=== PATIENT | female | born 1950 | race American Indian/Alaskan Native ===

== ENCOUNTER 2017-02-07 08:46 | Day surgery (SDC) | payer MEDICARE ==
[2017-01-30 10:44] VITALS: BMI 27.4
[2017-02-07] MEDS ORDERED: Sodium Chloride 0.9% 1,000 ML IV SCH (09:30)
[2017-02-07] MEDS ORDERED: Propofol 10 mg/ml Inj (20 ML) ONE ×2 (10:27→10:41)
[2017-02-07 11:50] VITALS: PULSE 63
[2017-02-07 13:22] VITALS: BP 113/63; RESP 16; TEMP 97; O2SAT 99
== END 2017-02-07 13:16 | disposition home or self-care (01) ==
LOC: ENDO 08:46
PROVIDERS: ATTEND Internal Medicine Gastroenterology
DX: D12.2 Benign neoplasm of ascending colon (principal); D12.5 Benign neoplasm of sigmoid colon; D12.3 Benign neoplasm of transverse colon; K64.1 Second degree hemorrhoids; K92.1 Melena
CPT/HCPCS: 45380; 45385; 88305; J2704; J7040 ×2